=== PATIENT | male | born 1955 | race Caucasian/White ===

== ENCOUNTER 2019-06-03 18:45 | Emergency (ER) | payer SELFPAY ==
--- NOTE | 2019-06-03 19:44 | ED.PDOC ---
History of Present Illness - General Chief Complaint: Lower Extremity Injury Stated Complaint: Left knee pain, chronic Time Seen by Provider: 06/03/19 19:34 Source: patient Exam Limitations: no limitations - History of Present Illness Initial Comments: SWELLING AND PAIN TO THE LEFT KNEE X ONE MONTH. DENIES ANY INJURY OR FEVER. AT TIMES IT SEEMS MORE SWOLLEN THAN OTHERS. Occurred: other - ONE MONTH Method of Injury: other - NO INJURY Improving Factors: nothing Worsening Factors: nothing Allergies/Adverse Reactions: Allergies Penicillins Allergy (Verified 04/02/15 07:51) Unknown Home Medications: Ambulatory Orders Indomethacin ER [Indocin ER] 75 mg PO DAILY #7 cap 06/03/19 Tramadol HCl 50 mg PO Q6HRS #14 tab 06/03/19 Review of Systems - Review of Systems Constitutional: States: no symptoms reported EENTM: States: no symptoms reported Respiratory: States: no symptoms reported Cardiology: States: no symptoms reported Gastrointestinal/Abdominal: States: no symptoms reported Genitourinary: States: no symptoms reported Musculoskeletal: States: joint pain, joint swelling Skin: States: no symptoms reported Neurological: States: no symptoms reported Endocrine: States: no symptoms reported Past Medical History (General) - Patient Medical History Hx Stroke: No Hx Congestive Heart Failure: No Hx Hypertension: Yes - quit taking meds Hx Diabetes: No Hx MRSA: Yes - Wound 2015 MRSA Source:: Wound - Vaccination History Hx Influenza Vaccination: No Hx Pneumococcal Vaccination: No Immunizations Up to Date: No - Social History Hx Tobacco Use: No - Triage Comment ED Triage Comment: Pain to left knee for past month. Told it was possibly arthritis, and pain will not go away. Gradually getting worse Family Medical History - Family History Father Living Status: Still Living Hx Family Stroke: Yes Hx Cardiac Disease: Yes - CABG Hx Family Diabetes: Yes Physical Exam - Physical Exam General Appearance: Alert, Well Developed, Well Groomed Eyes, Ears, Nose, Throat: PERRL/EOMI, normal ENT inspection Neck: non-tender, full range of motion Cardiovascular/Respiratory: normal peripheral pulses Gastrointestinal/Abdominal: non-tender, no organomegaly Back: normal inspection Thigh/Hip: normal inspection Leg: normal inspection Knee: other - LEFT KNEE WITH MILD SWELLING, NO REDNESS, GOOD ROM Progress - Progress Progress: 06/03/19 20:30 IMAGING: PRELIMINARY REPORT: MILD DJD CHANGES. - Results/Orders Results/Orders: 06/03/19 19:11 Knee,Left Complete [RAD] Stat Laboratory Results WBC 8.2 K/mm3 (4.8-10.8) 06/03/19 19:54 RBC 4.22 M/mm3 (4.70-6.10) L 06/03/19 19:54 Hgb 13.5 gm/dL (14.0-18.0) L 06/03/19 19:54 Hct 39.0 % (42.0-52.0) L 06/03/19 19:54 MCV 92.4 fl (80.0-94.0) 06/03/19 19:54 MCH 32.0 pg (27.0-31.0) H 06/03/19 19:54 MCHC 34.6 g/dL (33.0-37.0) 06/03/19 19:54 RDW 13.8 % (11.5-14.5) 06/03/19 19:54 Plt Count 217 K/mm3 (130-400) 06/03/19 19:54 MPV 9.0 fl (7.40-10.4) 06/03/19 19:54 Absolute Neuts (auto) 6.00 K/uL (1.8-6.8) 06/03/19 19:54 Absolute Lymphs (auto) 1.20 K/uL (1.0-3.4) 06/03/19 19:54 Absolute Monos (auto) 0.50 K/uL (0.2-0.8) 06/03/19 19:54 Absolute Eos (auto) 0.30 K/uL (0.0-0.4) 06/03/19 19:54 Absolute Basos (auto) 0.10 K/uL (0.0-0.1) 06/03/19 19:54 Neutrophils % 73.8 % (42.0-78.0) 06/03/19 19:54 Lymphocytes % 14.9 % (20.0-50.0) L 06/03/19 19:54 Monocytes % 6.5 % (2.0-9.0) 06/03/19 19:54 Eosinophils % 4.2 % (1.0-5.0) 06/03/19 19:54 Basophils % 0.6 % (0.0-2.0) 06/03/19 19:54 Sodium 139 mmol/L (135-145) 06/03/19 19:54 Potassium 3.7 mmol/L (3.6-5.0) 06/03/19 19:54 Chloride 103 mmol/L (101-111) 06/03/19 19:54 Carbon Dioxide 24 mmol/L (21-31) 06/03/19 19:54 Anion Gap 15.7 (12-18) 06/03/19 19:54 BUN 25 mg/dL (7-18) H 06/03/19 19:54 Creatinine 1.33 mg/dL (0.6-1.3) H 06/03/19 19:54 BUN/Creatinine Ratio 18.8 (10-20) 06/03/19 19:54 Random Glucose 124 mg/dL (70-105) H 06/03/19 19:54 Serum Osmolality 283.4 mOsm/L (275-295) 06/03/19 19:54 Uric Acid 6.7 mg/dL (2.6-7.2) 06/03/19 19:54 Calcium 9.1 mg/dL (8.4-10.2) 06/03/19 19:54 Total Bilirubin 0.9 mg/dL (0.2-1.0) 06/03/19 19:54 AST 30 IU/L (10-42) 06/03/19 19:54 ALT 24 IU/L (10-60) 06/03/19 19:54 Alkaline Phosphatase 75 IU/L (42-121) 06/03/19 19:54 Serum Total Protein 7.4 gm/dL (6.4-8.2) 06/03/19 19:54 Albumin 4.2 g/dl (3.2-5.5) 06/03/19 19:54 Globulin 3.2 gm/dL (2.3-3.5) 06/03/19 19:54 Albumin/Globulin Ratio 1.3 (1.1-1.9) 06/03/19 19:54 Departure - Departure Clinical Impression: Knee effusion, left Time of Disposition: 20:31 Disposition: Discharge to Home or Self Care Condition: Good Departure Forms: ED Discharge - Pt. Copy, Patient Portal Self Enrollment Instructions: DI for Leg Pain Diet: resume usual diet Activity: increase activity as tolerated Prescriptions: Tramadol HCl 50 mg PO Q6HRS #14 tab Indomethacin ER [Indocin ER] 75 mg PO DAILY #7 cap Home Medications: Ambulatory Orders Indomethacin ER [Indocin ER] 75 mg PO DAILY #7 cap 06/03/19 Tramadol HCl 50 mg PO Q6HRS #14 tab 06/03/19 Additional Instructions: FOLLOW UP WITH YOUR DOCTOR IN ONE WEEK
[2019-06-03] MEDS ORDERED: cloNIDine HCL 0.1 MG TAB PO ONE (20:42)
--- NOTE | 2019-06-03 21:02 | RAD ---
EXAM DESCRIPTION: XR Knee, Left Complete CLINICAL HISTORY: 63 years Male increasing pain, no trauma TECHNIQUE: Three views of the left knee are provided. COMPARISON: No prior exams provided for comparison. FINDINGS: There is no acute left knee fracture or dislocation. There is a large suprapatellar joint effusion. There is chronic-appearing fragmentation at the tibial tuberosity with pronounced thickening of the distal patellar tendon. There is mild tricompartmental osteoarthritis with joint space narrowing most pronounced in the lateral compartment. No aggressive osseous lesion. IMPRESSION: No acute left knee fracture or dislocation. Large suprapatellar joint effusion. If there is any clinical concern for infection, immediate aspiration is recommended. 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 Pronounced thickening of the distal patellar tendon. Mild tricompartmental osteoarthritis. Electronically signed by: Ashli Arnold MD 06/03/2019 9:00 PM CDT
[2019-06-03] MEDS ORDERED: LISINOPRIL 10 MG TAB PO ONE (21:52)
[2019-06-03] MEDS ORDERED: LISINOPRIL 10 MG TAB ONE (21:53)
[2019-06-03 22:01] VITALS: O2SAT 98
[2019-06-03 22:04] VITALS: BP 206/119; TEMP 97.8
== END 2019-06-03 22:04 | disposition home or self-care (01) ==
LOC: ER 18:45
DX: M25.462 Effusion, left knee (principal); I10 Essential (primary) hypertension; M25.562 Pain in left knee; Z88.0 Allergy status to penicillin

== ENCOUNTER 2019-11-29 21:41 | Emergency (ER) | payer SELFPAY ==
[2019-11-29 22:03] VITALS: TEMP 96.6; O2SAT 95
[2019-11-29] MEDS ORDERED: LIDOCAINE 1% 10 ML VIAL INJ ONE (22:03)
[2019-11-29] MEDS ORDERED: KETOROLAC TROMETHAMINE INJ 60 MG/2 ML VIAL IM ONE ×2 (22:18→22:20)
--- NOTE | 2019-11-29 22:24 | ED.PDOC ---
History of Present Illness - General Chief Complaint: Upper Extremity Injury Stated Complaint: swollen middle finger Time Seen by Provider: 11/29/19 22:19 Source: patient Exam Limitations: no limitations - History of Present Illness Initial Comments: 64 yo M who presents for L MF swelling and pain around his nail for the past several days, throbbing pain in nature. Denies injury, trauma. Hx of HTN, off of medication for 6 months, he lost the prescription, reports BP is normally around 180 systolic, he has had that since high school. Denies any f/c, CP, SOB, syncope, weakness, numbness, BAZZI, change in vision, back pain. Allergies/Adverse Reactions: Allergies Penicillins Allergy (Verified 04/02/15 07:51) Unknown Home Medications: Ambulatory Orders Indomethacin ER [Indocin ER] 75 mg PO DAILY #7 cap 06/03/19 Lisinopril 20 mg PO DAILY #30 tab 06/03/19 Tramadol HCl 50 mg PO Q6HRS #14 tab 06/03/19 Cephalexin Monohydrate [Keflex] 500 mg PO Q6H 10 Days cap 11/29/19 Review of Systems - Review of Systems Constitutional: Denies: chills, fever EENTM: Denies: blurred vision, double vision Respiratory: Denies: cough, short of breath Cardiology: Denies: chest pain, palpitations, syncope Gastrointestinal/Abdominal: Denies: abdominal pain, nausea, vomiting Genitourinary: Denies: dysuria, hematuria Musculoskeletal: Denies: back pain, neck pain Skin: States: other - pain, swelling around L MF Neurological: Denies: headache, numbness, weakness Past Medical History (General) - Patient Medical History Hx Stroke: No Hx of COPD: Yes Hx Congestive Heart Failure: No Hx Hypertension: Yes Hx Diabetes: No Hx MRSA: Yes - Wound 2015 MRSA Source:: Wound Surgical History: other - Vaccination History Hx Tetanus, Diphtheria Vaccination: No Hx Influenza Vaccination: No Hx Pneumococcal Vaccination: No - Social History Hx Tobacco Use: Yes Hx Alcohol Use: No Family Medical History - Family History Father Living Status: Still Living Hx Family Stroke: Yes Hx Cardiac Disease: Yes - CABG Hx Family Diabetes: Yes Hx Family;Other: none Physical Exam - Physical Exam General Appearance: Alert, Comfortable, No apparent distress, Well Developed, Well Nourished Eyes, Ears, Nose, Throat Exam: normal ENT inspection Neck: non-tender, full range of motion, supple Cardiovascular/Respiratory: regular rate, rhythm, no M/R/G, normal peripheral pulses, no JVD, normal breath sounds, no respiratory distress Abdominal Exam: non-tender, tenderness Back Exam: normal inspection, no CVA tenderness, no vertebral tenderness Hand Exam: normal ROM, swelling - evidence of paronychia around L MF, pulp is soft Neuro/Tendon: normal sensation, normal motor functions, normal tendon functions Mental Status: alert, oriented x 3 Skin Exam: normal color, warm/dry Progress - Progress Progress: I have explained and reviewed all results with the pt. Pt is well appearing, BP improved, now at pt reported baseline, family at bedside, stressed the need for follow up and to be placed back on BP medications. Family and pt aware of the seriousness in needing to have BP managed, states he will follow up. I explained that emergent conditions may arise and to return to the ER for new, worsening, or any persistent conditions. I've explained the importance of f/u for recheck. All questions and concerns addressed at this time. Pt understands and agrees with plan. Pt well appearing, NAD, is stable for discharge. Marlyn Mccarty MD Emergency Medicine Physician Billing Number [id number] - Results/Orders Results/Orders: Vital Signs - 24 hr 11/29/19 11/29/19 21:59 22:50 Temperature 96.6 F L 96.6 F L Pulse Rate [ 86 91 H left] Respiratory 20 20 Rate Blood Pressure 217/127 183/94 [Right Arm] O2 Sat by Pulse 95 95 Oximetry Procedures - Incision and Drainage #1 Site: L MF paronychia Procedure and Prep: other - chloraprep Blade Size: 11 Procedure Comments: Digital block with 1% lido. Moderate amount of purulent drai nage. Departure - Departure Clinical Impression: Paronychia Time of Disposition: 22:52 Disposition: Discharge to Home or Self Care Health Concerns: condition: stable Departure Forms: ED Discharge - Pt. Copy, Patient Portal Self Enrollment Instructions: Paronychia (DC) Prescriptions: Cephalexin Monohydrate [Keflex] 500 mg PO Q6H 10 Days cap Home Medications: Ambulatory Orders Indomethacin ER [Indocin ER] 75 mg PO DAILY #7 cap 06/03/19 Lisinopril 20 mg PO DAILY #30 tab 06/03/19 Tramadol HCl 50 mg PO Q6HRS #14 tab 06/03/19 Cephalexin Monohydrate [Keflex] 500 mg PO Q6H 10 Days cap 11/29/19 Additional Instructions: Follow up: [facility], As needed, if symptoms worsen Your Primary Care Physician, Make appointment, three days, for follow up
[2019-11-29 22:51] VITALS: BP 183/94
== END 2019-11-29 23:09 | disposition home or self-care (01) ==
LOC: ER 21:41
DX: L03.012 Cellulitis of left finger (principal); I10 Essential (primary) hypertension; J44.9 Chronic obstructive pulmonary disease, unspecified; Z79.899 Other long term (current) drug therapy; Z88.0 Allergy status to penicillin; Z91.14 Patient's other noncompliance with medication regimen; Z87.891 Personal history of nicotine dependence